=== PATIENT | female | born 1935 | race Caucasian/White ===

== ENCOUNTER 2019-02-14 17:59 | Emergency (ER) | payer OTHER ==
[~2019-02-14] VITALS: Ht 327.7 cm; Wt 42.6 kg
[~2019-02-14 17:59] MED LIST: LEVEMIR; MAXZIDE-25 MG1 EACH PO; NOVOLOG
[2019-02-14 19:01] LABS: ABSOLUTE BASOPHILS 0.1 thou/uL (0.0-0.2); ABSOLUTE EOSINOPHILS 0.2 thou/uL (0.0-0.7); ABSOLUTE LYMPHOCYTES 2.1 thou/uL (0.8-5.3); ABSOLUTE MONOCYTES 0.7 thou/uL (0.0-1.2); ABSOLUTE NEUTROPHILS 5.2 thou/uL (1.6-8.1); BASOPHILS 1.4 %; EOSINOPHILS 2.4 %; HEMATOCRIT 41.4 % (37.0-47.0); HEMOGLOBIN 14.6 gm/dL (12.0-15.0); LYMPHOCYTES 25.6 %; MCH 33.1 pg (26.0-34.0); MCHC 35.2 g/dL (28.0-37.0); MCV 94.1 fL (80.0-100.0); MONOCYTES 8.3 %; MPV 9.5 fl. (7.2-11.1); NUCLEATED RBCS 0 /100WBC; PLATELET COUNT* 162 thou/uL (150-400); POLYS 62.3 %; RDW-CV 13.3 % (10.5-14.5); WBC 8.4 thou/uL (4.0-11.0)
[2019-02-14 19:17] LABS: CALCIUM 9.1 mg/dL (8.5-10.1); POTASSIUM 3.6 mmol/L (3.5-5.1)
[2019-02-14 19:21] LABS: ALBUMIN 3.5 g/dL (3.4-5.0); TOTAL BILIRUBIN 0.2 mg/dL (<0.1-1.0); TOTAL PROTEIN 7.4 g/dL (6.4-8.2)
[2019-02-14 19:53] LABS: URINE BILIRUBIN NEGATIVE (Negative); URINE BLOOD TRACE (Negative); URINE CLARITY CLEAR; URINE COLOR YELLOW; URINE GLUCOSE-RANDOM NEGATIVE (Negative); URINE KETONES NEGATIVE (Negative); URINE LEUKOCYTES-REFLEX NEGATIVE (Negative); URINE NITRITE-REFLEX NEGATIVE (Negative); URINE PROTEIN NEGATIVE (Negative); URINE SPECIFIC GRAVITY <= 1.005 (1.005-1.030); URINE UROBILINOGEN 0.2 E.U./dl (0.2-1.0)
[2019-02-14 19:59] VITALS: BP 148/65
--- NOTE | 2019-02-15 15:48 | EKG ---
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1935 Requested By: Carolina Randall Order Number: [id number] MD: Andrea Morocho Measurements Intervals Sabin Rate: 69 P: 92 GA: 177 QRS: -33 QRSD: 95 T: 82 QT: 400 QTc: 429 Interpretive Statements Sinus rhythm Probable left atrial enlargement Left axis deviation Abnormal inferior Q waves Compared to ECG 06/24/2012 02:46:46 Left-axis deviation now present Inferior Q waves now present Q waves now present Prolonged QT interval no longer present Electronically Signed On 02-15-2019 15:48:09 JEWELRY APPRAISER by Andrea Morocho [email or web address] <ELECTRONICALLY SIGNED> By: Andrea Morocho MD, [facility] 02/15/19 1548 1849 1849 Andrea Morocho MD, [facility] /EPI
== END 2019-02-14 20:01 | disposition home or self-care (01) ==
LOC: M.ERS 17:59
PROVIDERS: Nurse Practitioner Family
DX: E11.65 Type 2 diabetes mellitus with hyperglycemia (principal); Z88.1 Allergy status to other antibiotic agents; Z90.49 Acquired absence of other specified parts of digestive tract; Z90.710 Acquired absence of both cervix and uterus; Z85.41 Personal history of malignant neoplasm of cervix uteri

== ENCOUNTER → 2019-10-23 | Outpatient (CLI) | payer OTHER ==
--- NOTE | 2019-10-23 15:33 | 2DMMODE ---
[place] [address] 2 D/M-MODE ECHOCARDIOGRAM Name: KASIE NEVAREZ Room: [facility]#: [id number] Admission: 10/23/19 Attend Phys: Andrea Atkinson, Discharge: Date of : 33 Date of Service: 10/23/19 1533 Report #: [id number] THIS REPORT FOR: cc: Andrea Atkinson,Cole Castorena MD [facility] ~ APPROVED REPORT Study performed: 10/23/2019 12:50:59 EXAM: Comprehensive 2D, Doppler, and color-flow Echocardiogram Patient Location: Out-Patient BSA: 1.40 HR: 63 bpm BP: 142/70 mmHg Other Information Study Quality: Good Indications Murmur 2D Dimensions IVSd: 7.89 (7-11mm) LVOT Diam: 19.44 (18-24mm) LVDd: 33.52 mm PWd: 7.06 (7-11mm) Ascending Ao: 25.78 (22-36mm) LVDs: 19.23 (25-40mm) Aortic Root: 18.52 mm Volumes Left Atrial Volume (Systole) LA ESV Index: 15.90 mL/m2 Aortic Valve AoV Peak Wilmer.: 1.00 m/s AO Peak Gr.: 3.97 mmHg LVOT Max P.34 mmHg AO Mean Gr.: 2.54 mmHg LVOT Mean P.53 mmHg LVOT Max V: 1.04 m/s AO V2 VTI: 27.13 cm LVOT Mean V: 0.75 m/s YURIY (VTI): 3.37 cm2 LVOT V1 VTI: 30.80 cm Mitral Valve E/A Ratio: 0.70 [place] [address] 2 D/M-MODE ECHOCARDIOGRAM Name: KASIE NEVAREZ Room: [facility]#: [id number] Admission: 10/23/19 Attend Phys: Anrdea Atkinson, Discharge: Date of : 33 Date of Service: 10/23/19 1533 Report #: [id number] MV Decel. Time: 323.22 ms MV E Max Wilmer.: 0.85 m/s MV PHT: 93.73 ms MVA (PHT): 2.35 cm2 TDI E/Lateral E': 9.44 E/Medial E': 10.63 Medial E' Wilmer.: 0.08 m/s Lateral E' Wilmer.: 0.09 m/s Pulmonary Valve PV Peak Wilmer.: 0.90 m/s PV Peak Gr.: 3.21 mmHg Left Ventricle The left ventricle is normal size. There is normal LV segmental wall motion. There is normal left ventricular wall thickness. Left ventricular systolic function is normal. The left ventricular ejection fraction is within the normal range. LVEF is 60-65%. Grade I - abnormal relaxation pattern. Right Ventricle The right ventricle is normal size. The right ventricular systolic function is normal. Atria The left atrium size is normal. The right atrium size is normal. Aortic Valve The aortic valve is normal in structure. No aortic regurgitation is present. There is no aortic valvular stenosis. Mitral Valve The mitral valve is normal in structure. Mild mitral regurgitation. No evidence of mitral valve stenosis. There is mild mitral valve prolapse. Tricuspid Valve The tricuspid valve is normal in structure. There is no tricuspid valve regurgitation noted. Pulmonic Valve The pulmonary valve is normal in structure. Mild pulmonic regurgitation[place] [address] 2 D/M-MODE ECHOCARDIOGRAM Name: KASIE NEVAREZ Room: [facility]#: [id number] Admission: 10/23/19 Attend Phys: Andrea Atkinson, Discharge: Date of : 33 Date of Service: 10/23/19 1533 Report #: [id number] The aortic root is normal in size. IVC is normal in size and collapses >50% with inspiration. Pericardium There is no pericardial effusion. <Conclusion> Left ventricular systolic function is normal. The left ventricular ejection fraction is within the normal range. Mild mitral regurgitation. <ELECTRONICALLY SIGNED> By: Cole Anderson MD, [facility] 10/23/19 1533 1533 1533 Cole Anderson MD, FAC /INF
== END ==
LOC: M.CRD 10-14 11:00
PROVIDERS: ATTEND Family Medicine
DX: I08.8 Other rheumatic multiple valve diseases (principal)

== ENCOUNTER → 2020-01-08 | Outpatient (CLI) | payer OTHER | LOC: M.RAD 13:18 | PROVIDERS: ATTEND Family Medicine | DX: M81.0 Age-related osteoporosis without current pathological fracture (principal); Z78.0 Asymptomatic menopausal state ==

== ENCOUNTER → 2020-03-16 | Outpatient (CLI) | payer OTHER | LOC: M.RAD 03-03 14:47 | PROVIDERS: ATTEND Family Medicine | DX: N64.4 Mastodynia (principal) ==

== ENCOUNTER → 2020-10-01 | Outpatient (CLI) | payer OTHER | LOC: M.ULTRA 14:00 | PROVIDERS: ATTEND Family Medicine | DX: K80.20 Calculus of gallbladder without cholecystitis without obstruction (principal) ==

== ENCOUNTER 2021-04-08 17:42 | Inpatient (IN) | payer OTHER ==
[~2021-04-08] VITALS: Ht 157.5 cm
[2021-04-08 18:11] VITALS: BP 110/46
[2021-04-08] MEDS ORDERED: EVISTA60 MG PO (18:12)
[2021-04-08] MEDS ORDERED: FUROSEMIDE 20 M20 MG PO (18:12)
--- NOTE | 2021-04-08 19:27 | NUR ---
PT FELT DIZZY AND STATES SHE THOUGHT HER BLOOD SUGAR WAS LOW- RN CHECKED BLOOD SUGAR: 165
[2021-04-08 20:19] LABS: ABSOLUTE BASOPHILS 0.1 thou/uL (0.0-0.2); ABSOLUTE EOSINOPHILS 0.1 thou/uL (0.0-0.7); ABSOLUTE LYMPHOCYTES 1.1 thou/uL (0.8-5.3); ABSOLUTE MONOCYTES 0.9 thou/uL (0.0-1.2); ABSOLUTE NEUTROPHILS 7.8 thou/uL (1.6-8.1); BASOPHILS 0.6 %; HEMATOCRIT 42.9 % (37.0-47.0); HEMOGLOBIN 14.4 gm/dL (12.0-15.0); LYMPHOCYTES 10.6 %; MCH 31.7 pg (26.0-34.0); MCHC 33.6 g/dL (28.0-37.0); MCV 94.4 fL (80.0-100.0); MPV 8.9 fl. (7.2-11.1); NUCLEATED RBCS 0 /100WBC; PLATELET COUNT* 106 thou/uL (150-400); POLYS 78.8 %; RBC 4.55 mil/uL (4.20-5.00); WBC 9.9 thou/uL (4.0-11.0)
[2021-04-08 20:24] LABS: CALCIUM 9.4 mg/dL (8.5-10.1); CREATININE 1.1 mg/dL (0.6-1.3); POTASSIUM 3.8 mmol/L (3.5-5.1)
[2021-04-08 20:29] LABS: ALBUMIN 3.6 g/dL (3.4-5.0); APTT 22.2 Seconds (25.0-31.3); PROTIME 10.3 Seconds (9.20-11.50); TOTAL BILIRUBIN 0.4 mg/dL (<0.1-1.0); TOTAL PROTEIN 7.6 g/dL (6.4-8.2)
[2021-04-09] VITALS (7 sets, daily range): BP systolic 95–139; BP diastolic 49–90
[2021-04-09 07:40] LABS: HEMATOCRIT 40.4 % (37.0-47.0); HEMOGLOBIN 13.9 gm/dL (12.0-15.0); MCH 31.4 pg (26.0-34.0); MCHC 34.4 g/dL (28.0-37.0); MCV 91.4 fL (80.0-100.0); MPV 8.8 fl. (7.2-11.1); RBC 4.42 mil/uL (4.20-5.00); RDW-CV 13.4 % (10.5-14.5); WBC 8.8 thou/uL (4.0-11.0)
[2021-04-09 07:52] LABS: CALCIUM 8.6 mg/dL (8.5-10.1); POTASSIUM 3.8 mmol/L (3.5-5.1)
[2021-04-09 07:57] LABS: ALBUMIN 3.1 g/dL (3.4-5.0); MAGNESIUM 1.8 mg/dL (1.8-2.4); TOTAL BILIRUBIN 0.4 mg/dL (<0.1-1.0); TOTAL PROTEIN 6.8 g/dL (6.4-8.2)
--- NOTE | 2021-04-09 10:18 | NUR ---
ASSUMED PT CARE AT APPROX 0915. PT TRANSFERRED FROM THE ER. PT IS PLEASANTLY A&OX4. PT DENIES ANY DIZZINESS AND STATES THAT SHE AMBULATES INDEPENDENTLY FREQUENTLY WITH A CANE. PT IS UP AD EUFEMIA IN ROOM WITH CANE. ASSESSMENT COMPLETED. PT VERBALIZES UNDERSTANDING OF FALL PRECAUTIONS.
[2021-04-09 12:17] LABS: CHOLESTEROL 187 mg/dL (<200); HDL CHOLESTEROL 91 mg/dL (>40); LDL CHOLESTEROL 80 mg/dL (<100); SERUM ASSESSMENT Clear; TC:HDL 2.1 Ratio (Not establshd); TRIGLYCERIDE 80 mg/dL (<150); VLDL 16 mg/dL (<40)
--- NOTE | 2021-04-09 16:03 | NUR ---
NEW ORDER RECIEVED FOR CTA UPPER EXTREMITIES, REQUIRES NEW IV ACCESS. IV PLACED IN RAC. PT TOLERATED WELL. PT O2 SATS 88%, PT PLACED ON 2L OF O2. NO RESPIRATORY DISTRESS OR COUGH NOTED, PT C/O PAIN IN FINGERTIPS TO L HAND. NON PHARM INTERVENTIONS INEFFECTIVE, PRN PAIN MEDICATION ADMINISTERED AND PT RESTING WITH EYES CLOSED.
--- NOTE | 2021-04-09 19:38 | NUR ---
pt c/o pain at shift change at an 8. prn fentanyl administered.
[2021-04-10 01:39] VITALS: BP 141/50
[2021-04-10 05:16] VITALS: BP 136/52
--- NOTE | 2021-04-10 09:28 | NUR ---
PT STABLE. CURRENT PAIN MEDICATION REGIMEN ADEQUATE FOR CONTROLLING HER PAIN UP TO 0700 TODAY. WEEN O2 TOLERATED.
[2021-04-10] MEDS ORDERED: COREG3.125 MG PO (09:36)
[2021-04-10] MEDS ORDERED: PERCOCET 5-3251 EACH PO (09:36)
[2021-04-10] MEDS ORDERED: ASA81BEC PO (09:36)
[2021-04-10] MEDS ORDERED: LIPITOR 40 MG T40 M1 PO (09:36)
--- NOTE | 2021-04-10 10:03 | CON ---
[address] [address] CONSULTATION Name: KASIE NEVAREZ Sobeida Room: [address] ..#: [id number] Admission: 04/08/21 Attend Phys: Denisa Bruno MD Discharge: Date of : 33 Report #: [id number] THIS REPORT FOR: cc: Andrea Atkinson John E. DO Liston, Michael J. MD [facility] ~ DATE OF CONSULTATION: 04/09/2021 CARDIOLOGY CONSULTATION INDICATION: Digit ischemia on the left hand. HISTORY OF PRESENT ILLNESS: The patient is a very pleasant 85-year-old white female with a history of type 2 diabetes mellitus and tobacco use, who presents to the Emergency Room on the advice of her primary care physician with cyanosis and pain of her fingertips on her left hand. Examination reveals a purplish discoloration of her distal fingertips consistent with ischemia. The patient has no other such lesions involving her right hand or feet. She is without other complaint at this time. ALLERGIES: CEPHALEXIN, ERYTHROMYCIN. PAST MEDICAL AND SURGICAL HISTORY: 1. Type 2 diabetes mellitus. 2. Tobacco abuse. 3. Bilateral lens implants. 4. Cervical cancer, status post surgery. 5. Appendectomy. 6. Hysterectomy. FAMILY HISTORY: Noncontributory. SOCIAL HISTORY: The patient smokes daily. She does not drink alcohol. REVIEW OF SYSTEMS: As per HPI, otherwise unremarkable. PHYSICAL EXAMINATION: VITAL SIGNS: Blood pressure 105/60, pulse 94 and regular. GENERAL: This is a pleasant elderly female in no distress. Mood and affect appropriate. HEENT: Extraocular muscles intact. Mucous membranes are moist. NECK: Examination of the neck shows no jugular venous distention. There are no carotid bruits. CHEST: Reveals diminished breath sounds without wheezes or rales. CARDIAC: Reveals a regular rhythm without gallop. There [place] [address] CONSULTATION Name: NICO NEVAREZCHLOÉ Vidales Room: [address]#: [id number] Admission: 04/08/21 Attend Phys: Denisa Bruno MD Discharge: Date of : 33 Report #: [id number] in the left upper chest, grade 1/6 systolic. I do not appreciate gallop. ABDOMEN: Reveals normal bowel sounds. The abdomen is soft, nontender. EXTREMITIES: Shows no edema. SKIN: Warm and dry. NEUROLOGIC: Peripheral pulses are palpable. There is discoloration of the distal fingertips in the left hand. The fingertips are painful to palpation. Radial pulses palpable. LABORATORY DATA: Reviewed. Electrolytes are within normal limits. BUN 22, creatinine 1.0, serum glucose 176. LFTs within normal limits. Fasting lipid profile is pending. Coags are within normal limits. White blood cell count 8.8, hemoglobin 13.9, platelet count 88. CTA of the left upper extremity pending. Left upper extremity arterial Doppler and venous Doppler studies were unremarkable. Chest x-ray showed no acute cardiopulmonary process. IMPRESSION AND RECOMMENDATIONS: 1. Microemboli to the digits of the left hand. This most likely represents a plaque rupture with cholesterol emboli. No indication for anticoagulation at this time. Recommend initiation of statin therapy and obtaining fasting lipid profile. Agree with CTA of the upper extremity to see if there is bulky plaquing, which may be amenable to intervention. 2. Diabetes, per hospitalist. 3. Probable hyperlipidemia. Starting atorvastatin at this time. Fasting lipid profile ordered and pending. 4. Chronic tobacco abuse. Cessation advised. <ELECTRONICALLY SIGNED> By: Galileo Parekh MD, FACC 04/10/21 1003 1109 1118[facility] Campusninfa Parekh MD, FACC /nt
[2021-04-10 12:56] VITALS: BP 136/52
[2021-04-10 14:41] LABS: URINE BILIRUBIN NEGATIVE (Negative); URINE BLOOD NEGATIVE (Negative); URINE CLARITY CLEAR; URINE COLOR YELLOW; URINE GLUCOSE-RANDOM NEGATIVE (Negative); URINE KETONES 1+ (Negative); URINE LEUKOCYTES-REFLEX NEGATIVE (Negative); URINE NITRITE-REFLEX NEGATIVE (Negative); URINE PROTEIN TRACE (Negative); URINE SPECIFIC GRAVITY 1.015 (1.005-1.030); URINE UROBILINOGEN 0.2 E.U./dl (0.2-1.0)
== END 2021-04-10 13:05 | disposition home or self-care (01) | DRG 299 ==
LOC: M.ERS 17:42 → M.TBA-ER 22:30 → M.2W 22:30
PROVIDERS: Internal Medicine; Internal Medicine Cardiovascular Disease; Personal Emergency Response Attendant; ADMIT Internal Medicine; ATTEND Internal Medicine
DX: I74.2 Embolism and thrombosis of arteries of the upper extremities (principal); E43 Unspecified severe protein-calorie malnutrition; Z20.822 Contact with and (suspected) exposure to COVID-19; E78.5 Hyperlipidemia, unspecified; F17.210 Nicotine dependence, cigarettes, uncomplicated; Z71.6 Tobacco abuse counseling; Z88.8 Allergy status to other drugs, medicaments and biological substances; Z90.49 Acquired absence of other specified parts of digestive tract; E11.51 Type 2 diabetes mellitus with diabetic peripheral angiopathy without gangrene; Z79.4 Long term (current) use of insulin; Z85.41 Personal history of malignant neoplasm of cervix uteri